=== PATIENT | female | born 1990 | race Caucasian/White ===

== ENCOUNTER 2019-08-10 12:24 | Inpatient (IN) | payer MEDICAID, OTHER ==
[~2019-08-10] VITALS: Ht 160 cm; Wt 71.8 kg
[2019-08-10] MEDS ORDERED: OMEP10 PO (12:45)
[2019-08-10] MEDS ORDERED: HALOPERIDOL LACTATE 5 MG/ML VIAL IM ONE (13:00)
[2019-08-10] MEDS ORDERED: LORazepam 2 MG/ML VIAL IM ONE (13:00)
[2019-08-10] MEDS ORDERED: KETOROLAC TROMETHAMINE 30 MG/ML VIAL IVP ONE (13:00)
[2019-08-10] MEDS ORDERED: DiphenhydrAMINE HCL 50 MG/ML VIAL IM ONE (13:00)
[2019-08-10] MEDS ORDERED: KETOROLAC TROMETHAMINE 30 MG/ML VIAL IM ONE (13:45)
[2019-08-10] MEDS ORDERED: ZOLPIDEM TARTRATE 10 MG TABLET PO PRN (14:30)
[2019-08-10] MEDS ORDERED: LORazepam 2 MG TABLET PO PRN (14:30)
[2019-08-10] MEDS ORDERED: HALOPERIDOL 5 MG TABLET PO PRN (14:30)
[2019-08-10 15:21] LABS: BASOPHILS % (AUTO) 1.6 % (0.0-2.0); EOSINOPHILS % (AUTO) 1.7 % (1.0-6.0); HEMATOCRIT 41.3 % (36-46); HEMOGLOBIN 13.9 g/dL (12.0-16.0); LYMPHOCYTES # (AUTO) 1.8 K/uL (1.0-4.8); LYMPHOCYTES % (AUTO) 36.8 % (22.0-44.0); MEAN CORPUSCULAR HEMOGLOBIN 30.4 pg (26.0-34.0); MEAN CORPUSCULAR HGB CONC 33.5 G/dL (31.0-37.0); MEAN CORPUSCULAR VOLUME 91 fL (80-100); MONOCYTES # (AUTO) 0.4 K/uL (0.1-1.0); MONOCYTES % (AUTO) 8.1 % (2.0-9.0); NEUTROPHILS # (AUTO) 2.5 K/uL (1.8-7.7); NEUTROPHILS % (AUTO) 51.8 % (40.0-70.0); PLATELET COUNT (AUTO) 226 K/uL (150-450); RED BLOOD CELL COUNT(AUTO) 4.56 MIL/uL (4.00-5.20); RED CELL DISTRIBUTION WIDTH 13.8 % (11.5-14.5)
[2019-08-10 15:46] LABS: ALANINE AMINOTRANSFERASE 17 U/L (12-78); ALBUMIN 3.7 g/dL (3.4-5.0); ALKALINE PHOSPHATASE 58 U/L (46-116); ANION GAP 12 mmol/L (8-16); ASPARTATE AMINOTRANSFERASE 15 U/L (15-37); BILIRUBIN,TOTAL 0.8 mg/dL (0.1-1.0); CALCIUM, TOTAL 9.4 mg/dL (8.8-10.5); CARBON DIOXIDE 28 mmol/L (22-29); CHLORIDE 101 mmol/L (98-107); CREATININE 0.93 mg/dL (0.60-1.30); GLOMERULAR FILTR. RATE CALC > 60 mL/min (>60); GLUCOSE,RANDOM 141 mg/dL (70-110); SODIUM SERUM 141 mmol/L (136-145); TOTAL PROTEIN, SERUM 7.4 g/dL (6.4-8.2); UREA NITROGEN, BLOOD 12 mg/dL (7-18)
[2019-08-10 15:50] LABS: POTASSIUM 2.7 mmol/L (3.5-5.1)
[2019-08-10] MEDS ORDERED: SODIUM CHLORIDE 0.9% 1,000 ML IV ONE ×2 (16:28→20:45)
[2019-08-10] MEDS ORDERED: POTASSIUM CHLORIDE 20 MEQ ER TABLET PO ONE (16:30)
[2019-08-10] MEDS: POTASSIUM CHL 10 MEQ/WATER 50 ML IV PRN ×2 (17:06→18:06)
[2019-08-10] MEDS ORDERED: GuaiFENesin/D-METHORPHAN [SUGAR-FREE] 200-20MG/10 ML SYRUP UDCUP PO PRN (20:15)
[2019-08-10] MEDS ORDERED: MAGNESIUM HYDROXIDE SUSPENSION 30 ML UDCUP PO PRN (20:15)
[2019-08-10] MEDS ORDERED: DOCUSATE SODIUM 100 MG CAPSULE PO PRN (20:15)
[2019-08-10] MEDS ORDERED: NICOTINE 14 MG/24 HOUR PATCH TD PRN (20:15)
[2019-08-10] MEDS ORDERED: ACETAMINOPHEN 325 MG TABLET PO PRN (20:15)
[2019-08-10] MEDS ORDERED: CloNIDine HCL 0.1 MG TABLET PO PRN (20:15)
[2019-08-10] MEDS ORDERED: PETROLATUM,WHITE 28 GM JELLY TP PRN (20:15)
[2019-08-10] MEDS ORDERED: ONDANSETRON HCL 4 MG TABLET PO PRN (20:15)
[2019-08-10] MEDS ORDERED: ALBUTEROL SULFATE HFA 90 MCG/PUFF 8 GM INHALER IH PRN (20:15)
[2019-08-10] MEDS ORDERED: LOPERAMIDE HCL 2 MG CAPSULE PO PRN (20:15)
[2019-08-10] MEDS ORDERED: MAG HYDROX/AL HYDROX/SIMETH ES 30 ML SUSPENSION UDCUP PO PRN (20:15)
[2019-08-11 00:59] VITALS: BP 104/62
[2019-08-11 08:22] VITALS: BP 110/75
[2019-08-11] MEDS: LURASIDONE HCL 40 MG TABLET PO SCH (17:31)
[2019-08-12] MEDS: OMEPRAZOLE 20 MG CAPSULE PO SCH (09:26)
[2019-08-12 09:56] VITALS: BP 122/67
[2019-08-12] MEDS: LURASIDONE HCL 40 MG TABLET PO SCH (17:29)
[2019-08-13] MEDS: OMEPRAZOLE 20 MG CAPSULE PO SCH (08:25)
[2019-08-13] MEDS ORDERED: LURA40 PO ×2 (09:17→10:25)
[2019-08-13 09:58] VITALS: BP 110/63
== END 2019-08-13 15:30 | disposition home or self-care (01) | DRG 753 ==
LOC: EMS 12:26 → 3EC 15:45
DX: F31.2 Bipolar disorder, current episode manic severe with psychotic features (principal); E87.6 Hypokalemia; F17.210 Nicotine dependence, cigarettes, uncomplicated; F15.10 Other stimulant abuse, uncomplicated; F14.10 Cocaine abuse, uncomplicated; G47.00 Insomnia, unspecified; K21.9 Gastro-esophageal reflux disease without esophagitis; S99.811A Other specified injuries of right ankle, initial encounter; X58.XXXA Exposure to other specified factors, initial encounter; Z59.0 Homelessness; Z91.5 Personal history of self-harm; Y93.89 Activity, other specified; Y92.89 Other specified places as the place of occurrence of the external cause; Y99.8 Other external cause status
CPT/HCPCS: 84132; 99291; G0480; J1200; J1630; J1885; J2060; J3480; J7030

== ENCOUNTER 2025-07-30 17:12 | Inpatient (IN) | payer MEDICAID ==
[~2025-07-30 17:12] MED LIST: DIVA-153 PO; MELA5TAB40 PO; NALT50TA33 PO; OLAN5TAB94 PO
[2025-07-30] MEDS ORDERED: MELATONIN 5 MG TABLET PO PRN (19:45)
[2025-07-30 20:45] LABS: GLUCOMETER DEV NAME(LOC) POC.BV; POC SARS-COV2 AG, FIA NEGATIVE (NEGATIVE)
[2025-07-30] MEDS: DIVALPROEX SODIUM 500 MG ER TABLET PO SCH (20:46)
[2025-07-30 21:00] VITALS: BP 118/76; PULSE 72; RESP 18; TEMP 98.4; O2SAT 99
[2025-07-31 08:37] VITALS: BP 96/62; PULSE 60; RESP 16; TEMP 98.1; O2SAT 100
[2025-07-31] MEDS: NALTREXONE HCL 50 MG TABLET PO SCH (09:00)
[2025-07-31 20:00] VITALS: RESP 17
[2025-07-31] MEDS: MELATONIN 5 MG TABLET PO SCH (20:37)
[2025-08-01 08:22] VITALS: BP 121/73; PULSE 78; RESP 16; TEMP 97.6; O2SAT 98
[2025-08-01] MEDS ORDERED: PROMETHAZINE HCL 25 MG TABLET PO PRN (15:45)
[2025-08-01] MEDS ORDERED: ZOLPIDEM TARTRATE 10 MG TABLET PO PRN (15:45)
[2025-08-01] MEDS ORDERED: ACETAMINOPHEN 325 MG TABLET PO PRN (15:45)
[2025-08-01] MEDS ORDERED: GuaiFENesin/D-METHORPHAN [SUGAR-FREE] 200-20MG/10 ML SYRUP UDCUP PO PRN (15:45)
[2025-08-01] MEDS: THIAMINE 100 MG TABLET PO SCH (16:57)
[2025-08-01 20:57] VITALS: RESP 18
[2025-08-02] MEDS: MULTIVITAMINS WITH MINERALS, THERAPEUTIC TABLET PO SCH (08:06)
[2025-08-02] MEDS: FOLIC ACID 1 MG TABLET PO SCH (08:06)
[2025-08-02] MEDS: PALIPERIDONE PALMITATE 234 MG/1.5 ML SYRINGE IM ONE (08:06)
[2025-08-02 08:13] VITALS: RESP 18
[2025-08-02 08:33] VITALS: RESP 18
[2025-08-03 08:24] VITALS: RESP 18
[2025-08-03] MEDS: OMEPRAZOLE 20 MG CAPSULE PO SCH (09:00)
[2025-08-03] MEDS: VALPROIC ACID 250 MG/5 ML SOLUTION UDCUP PO SCH (09:56)
[2025-08-03 21:01] VITALS: BP 90/54; PULSE 60; RESP 18; TEMP 98.2
[2025-08-04 08:16] VITALS: RESP 18
[2025-08-04 10:02] LABS: APPEARANCE,URINE CLEAR (CLEAR); GLUCOSE, URINE (UA) NEGATIVE (NEGATIVE); LEUKOCYTE ESTERASE ,URINE NEGATIVE (NEGATIVE); NITRATE,URINE NEGATIVE (NEGATIVE); OCCULT BLOOD,URINE NEGATIVE (NEGATIVE); PH,URINE DRUG SCREEN 7.5 (5.0-8.0); SPECIFIC GRAVITIY, URINE 1.010 (1.003-1.030)
[2025-08-04 10:06] LABS: ALCOHOL, URINE DRUG SCREEN NEGATIVE (NEGATIVE); AMPHET/METH SCREEN,URINE NEGATIVE (NEGATIVE); BARBITURATE SCREEN, URINE NEGATIVE (NEGATIVE); CANNABINOID SCREEN,URINE NEGATIVE (NEGATIVE); COCAINE SCREEN,URINE NEGATIVE (NEGATIVE); METHADONE SCREEN, URINE NEGATIVE (NEGATIVE)
[2025-08-04 10:45] LABS: HCG,QUAL URINE NEGATIVE (NEGATIVE)
[2025-08-04 20:52] VITALS: BP 99/55; PULSE 62; RESP 17; TEMP 97.8; O2SAT 99
[2025-08-04] MEDS: LURASIDONE HCL 40 MG TABLET PO SCH (21:00)
[2025-08-05 08:15] VITALS: BP 101/63; PULSE 64; RESP 18; TEMP 97.3; O2SAT 99
[2025-08-05] MEDS: OLANZapine 5 MG RAPDIS TABLET PO PRN (09:41)
[2025-08-05] MEDS: MAG HYDROX/ALUMINUM HYD/SIMETH ES 30 ML SUSPENSION UDCUP PO PRN (14:13)
[2025-08-05] MEDS: MAGNESIUM HYDROXIDE SUSPENSION 30 ML UDCUP PO PRN (17:48)
[2025-08-05 20:39] VITALS: BP_SYST 128; BP_SYST 198; BP_DIAS 60; PULSE 66; RESP 17; TEMP 97.4; O2SAT 98
[2025-08-06 08:25] VITALS: BP 112/68; PULSE 97; RESP 16; TEMP 98; O2SAT 97
[2025-08-06] MEDS ORDERED: PALIPERIDONE PALMITATE 156 MG/ML SYRINGE IM ONE (09:00)
[2025-08-06 20:23] VITALS: BP 124/78; PULSE 64; RESP 17; TEMP 97.2; O2SAT 99
[2025-08-07 08:34] VITALS: BP 109/60; PULSE 98; RESP 18; TEMP 97.8; O2SAT 99
[2025-08-07] MEDS: BENZOCAINE/MENTHOL [CEPACOL] LOZENGE PO PRN (15:21)
[2025-08-07 20:17] VITALS: BP 117/80; PULSE 75; RESP 17; TEMP 97.8; O2SAT 100
[2025-08-08 08:21] VITALS: RESP 18
[2025-08-08 20:38] VITALS: BP 125/84; PULSE 87; RESP 17; TEMP 98.2; O2SAT 99
[2025-08-08] MEDS: LURASIDONE HCL 80 MG TABLET PO SCH (21:05)
[2025-08-09] MEDS: LOPERAMIDE HCL 2 MG CAPSULE PO PRN (06:47)
[2025-08-09 08:25] VITALS: BP 128/85; PULSE 87; RESP 17; TEMP 97.1; O2SAT 99
[2025-08-09 10:22] LABS: ASPARTATE AMINOTRANSFERASE 16 U/L (15-37); CALCIUM, TOTAL 8.5 mg/dL (8.8-10.5); CHOL/HDL RATIO 2.8 (3.9-5.7); CREATININE 0.49 mg/dL (0.60-1.30); GLOMERULAR FILTR. RATE CALC > 60 mL/min (>60); GLUCOSE,RANDOM 81 mg/dL (70-110); LDL CHOL (CALC.) 67 mg/dL (0-130); SODIUM SERUM 140 mmol/L (136-145); TOTAL PROTEIN, SERUM 6.6 g/dL (6.4-8.2); UREA NITROGEN, BLOOD 7 mg/dL (7-18)
[2025-08-09] MEDS ORDERED: OXCA300T70 PO (20:11)
[2025-08-09] MEDS ORDERED: LURA40TA2 PO (20:11)
[2025-08-09] MEDS: LURASIDONE HCL 40 MG TABLET PO SCH (20:32)
[2025-08-09 20:49] VITALS: RESP 17
[2025-08-10 08:21] VITALS: BP 106/79; PULSE 77; RESP 18; TEMP 97.9; O2SAT 100
== END 2025-08-10 15:45 | disposition home or self-care (01) | DRG 761 ==
LOC: B2S 19:31 → B3A 07-31 18:11
PROVIDERS: ADMIT Psychiatry & Neurology Psychiatry; ATTEND Psychiatry & Neurology Psychiatry
PROC: GZHZZZZ Group Psychotherapy (ICD-10-PCS; principal; 2025-08-10)
PROC: GZ56ZZZ Individual Psychotherapy, Supportive (ICD-10-PCS; 2025-08-10)
DX: F25.1 Schizoaffective disorder, depressive type (principal); R45.851 Suicidal ideations; F41.9 Anxiety disorder, unspecified; Z91.148 Patient's other noncompliance with medication regimen for other reason; Z20.822 Contact with and (suspected) exposure to COVID-19; Z60.8 Other problems related to social environment; Z55.9 Problems related to education and literacy, unspecified; Z56.0 Unemployment, unspecified; Z59.9 Problem related to housing and economic circumstances, unspecified; Z88.0 Allergy status to penicillin; Z63.9 Problem related to primary support group, unspecified; Z65.3 Problems related to other legal circumstances
CPT/HCPCS: 80053; 80061; 80307; 81003; 83036; 84439; 84703; 87081